=== PATIENT | female | born 1960 ===

== ENCOUNTER 2024-09-11 10:35 | Emergency (ER) | payer MEDICAID, MEDICARE, OTHER ==
[~2024-09-11] VITALS: Ht 149.9 cm; Wt 81.8 kg
--- NOTE | 2024-09-11 12:16 | ED.PDOC ---
Foreign Body HPI Comments A 64 YEAR OLD FEMALE PRESENTS TO THE ED WITH COMPLAINT OF FOREIGN BODY OF LEFT HAND. PATIENT STATES SHE WAS PITTING PIECES OF WOOD INTO A BUCKET EARLIER TODAY AND SHE ACCIDENTALLY GOT A SPLINTER STUCK IN HER LEFT HAND. PATIENT REPORTS SHE HAS BEEN UNABLE TO REMOVE THE SPLINTER AND WOULD LIKE TO HAVE IT REMOVED HERE IN THE ED. PATIENT DENIES FEVER, CHILLS, SHORTNESS OF BREATH, CHEST PAIN, ABDOMINAL PAIN, NAUSEA, VOMITING, HEADACHE, OR OTHER COMPLAINTS. NO OTHER SYMPTOMS OR MODIFYING FACTORS AT THIS TIME. PATIENT IS ALERT, ORIENTED X 4, AND HAS STEADY GAIT. Chief Complaint: Foreign Body Time Seen by MD: 11:03 Primary Care Provider: STACY History of Present Illness: Nurses Notes, Medications, Allergies Allergies: Uncoded Allergies: PENICILLIN (Allergy, Unknown, 09/11/24) Home Meds Active Scripts Cephalexin Monohydrate (Cephalexin) 500 Mg Cap, 1 CAP PO QID, #28 CAP Prov:ABBIE SPENCEMOLLYDebra VINNIE 09/11/24 Information Source: Patient Mode of Arrival: Ambulatory Timing: Hours Duration: Since onset, Hours Severity: Moderate Ability to handle secretions: Normal Prehospital treatment: None Location: Left (LEFT HAND), Skin Context: Accidental Foreign Body: Wood Removal: Was attempted, Was not successful Associated signs and symptoms: Pain Past Medical History PAST MEDICAL HISTORY: Denies Surgical History: Denies all surgeries CELEBRITY MANAGER History: No Pertinent CELEBRITY MANAGER History Family History Family History: Reviewed,noncontributory to illness Social History Smoker: Non-Smoker Alcohol: Denies ETOH Use Drugs: Denies Drug Use Lives In: Home Constitutional: denies: chills, diaphoresis, fatigue, fever, malaise, sweats, weakness, others EENTM: denies: blurred vision, double vision, ear bleeding, ear discharge, ear drainage, ear pain, ear ringing, eye pain, eye redness, hearing loss, mouth pain, mouth swelling, nasal discharge, nose bleeding, nose congestion, nose pain, photophobia, tearing, throat pain, throat swelling, voice changes, others Respiratory: denies: cough, hemoptysis, orthopnea, SOB at rest, shortness of breath, SOB with excertion, stridor, wheezing, others Cardiovascular: denies: chest pain, dizzy spells, diaphoresis, Dyspnea on exertion, edema, irregular heart beat, left arm pain, lightheadedness, palpitations, PND, syncope, others Gastrointestinal: denies: abdomen distended, abdominal pain, blood streaked bowels, constipated, diarrhea, dysphagia, difficulty swallowing, hematemesis, melena, nausea, poor appetite, poor fluid intake, rectal bleeding, rectal pain, vomiting, others Genitourinary: denies: abnormal vagina bleeding, burning, dyspareunia, dysuria, flank pain, frequency, hematuria, incontinence, pain, , vagina d ischarge, urgency, others Neurological: denies: dizziness, fainting, headache, left sided numbness, left sided weakness, numbness, paresthesia, pre-existing deficit, right sided numbness, right sided weakness, seizure, speech problems, tingling, tremors, weakness, others Musculoskeletal: denies: back pain, gout, joint pain, joint swelling, muscle pain, muscle stiffness, neck pain, others Integumetry: reports: others (SPLINTER STUCK IN LEFT HAND); denies: bruises, change in color, change in hair/nails, dryness, laceration, lesions, lumps, rash, wounds Allergic/Immunocompromised: denies: Difficulty Healing, Frequent Infections, Hives, Itching, others Hematologic/Lymphatic: denies: anemia, blood clots, easy bleeding, easy bruising, swollen glands, others Endocrine: denies: excessive hunger, excessive sweating, excessive thirst, excessive urination, flushing, intolerance to cold, intolerance to heat, unexplained weight gain, unexplained weight loss, others Psychiatric: denies: anxiety, bipolar disorder, depression, hopeless, panic disorder, schizophrenia, sleepless, suicidal, others All Other Systems: Reviewed and Negative Physical Exam General Appearance: No Apparent Distress, Normal HEENT: Normal ENT Inspection, PERRL/EOMI, Pharynx Normal, TMs Normal Neck: Full Range of Motion, Non-Tender, Normal, Normal Inspection Respiratory: Chest Non-Tender, Lungs Clear, No Accessory Muscle Use, No Respiratory Distress, Normal Breath Sounds Cardiovascular: No Edema, No JVD, No Murmur, No Gallop, Normal Peripheral Pulses, Regular Rate/Rhythm Breast Exam: Deferred Gastrointestinal: No Organomegaly, Non Tender, No Pulsatile Mass, Normal Bowel Sounds, Soft Genitalia: Deferred Pelvic: Deferred Rectal: Deferred Extremities: Decreased range of motion, No calf tenderness, Normal capillary refill, Normal range of motion, No pedal edema, Tender (WITH A WOOD SPLINTER ON LEFT PALM. ) Musculoskeletal : Apperance: Normal Neurologic: Alert, vocational nursing instructor II-XII nml as Tested, No Motor Deficits, Normal Affect, Normal Mood, No Sensory Deficits Cerebellar Function: Normal Reflexes: Normal Skin: Dry, Normal Color, Warm, Wounds (A SMALL PUNCTURE WOUND A WOOD SPLINTER ON LEFT PALM, NO BLEEDING AND SWELLING. ) Peripheral Pulses: 2+ carotid (R), 2+ carotid (L) Lymphatic: No Adenopathy Was a procedure done? Was a procedure done?: Yes Sedation Sedation?: No Foreign Body Removal Foreign body in: SQ Anesthetic: Lidocaine, Without Epi Prep: Prep, Saline, Irrigation Procedure: Identified (A SPLINTER ), Removed (A LONG SPLINTER ON LEFT PALM. ) Informed consent obtained: No Risks/benefits/alt described: Yes FB Differential Dx Differential Diagnosis: Abrasion, Foreign Body X-Ray, Labs, Meds, VS Vital Signs Date Time Temp Pulse Resp B/P (MAP) Pulse Ox O2 Delivery O2 Flow Rate FiO2 09/11/24 12:18 98.0 115 20 159/71 (100) 97 98.0 09/11/24 12:18 115 20 97 Room Air 09/11/24 11:13 98.0 115 20 159/71 (100) 97 X-Ray, Labs, Meds, VS Comment EXTERNAL MEDICAL RECORDS REVIEWED: [NONE] INDEPENDENT HISTORIANS: [NONE] SOCIAL DETERMINANTS OF HEALTH: [NONE] LABS ORDERED: NONE REVIEWED AND INTERPRETED RESULTS: NONE IMAGING ORDERED: NONE TREATMENTS ORDERED: PROCEDURES PERFORMED: FOREIGN BODY REMOVAL OF LEFT HAND CRITICAL CARE TIME: NONE I HAVE DISCUSSED THE PATIENT WITH THE ATTENDING PHYSICIAN DR. SAGASTUME AND HE AGREES WITH THE PATIENT'S PLAN OF CARE AND DISPOSITION. BASED ON HISTORY OF PRESENT ILLNESS, AND PHYSICAL EXAM, PATIENT WILL BE DISCHARGED HOME. DISCUSSED PLAN FOR DISCHARGE HOME WITH RX []. MEDICATION WARNINGS GIVEN. SHARED DECISION MAKING: PATIENT INSTRUCTED TO FOLLOW UP WITH PRIMARY CARE PROVIDER IN 1-2 DAYS FOR RE-EVALUATION OF SYMPTOMS. PATIENT VERBALIZES UNDERSTANDING TO RETURN TO ED FOR NEW OR WORSENING SYMPTOMS OR IF FOLLOW UP WITH PCP CANNOT BE OBTAINED. PATIENT FEELS COMFORTABLE GOING HOME AT THIS TIME. ALL QUESTIONS ADDRESSED AT TIME OF DISCHARGE. Time of 1ST Reevaluation: 12:36 Reevaluation 1ST: Improved Patient Education/Counseling: Diagnosis, Treatment, Need For Follow Up Family Education/Counseling: Diagnosis, Treatment, Need For Follow Up Medical Screening: No EMC Exist At This Time Departure 1 Departure Time of Disposition: 12:36 Impression: Primary Impression: History of retained foreign body fully removed Disposition: HOME / SELF CARE / HOMELESS Condition: Stable Additional Instructions: FOLLOW-UP WITH PCP IN 1 TO 2 DAYS. TAKE MEDICATIONS PRESCRIBED. RETURN TO ED FOR ANY NEW OR WORSENING SYMPTOMS. e-Prescriptions Cephalexin Monohydrate (Cephalexin) 500 Mg Cap 1 CAP PO QID, #28 CAP Prov: ADRIÁN SPENCE 09/11/24 Discharged With: Self, Relative (Sibling) Critical Care Note Critical Care Time?: No Stability Stability form required: No I personally scribed for ADRIÁN SPENCE ([email or web address]) on 09/11/24 at 12:16. Electronically submitted by Marty Restrepo ([email or web address]). I personally scribed for ADRIÁN SPENCE ([email or web address]) on 09/11/24 at 12:19. Electronically submitted by Marty Restrepo ([email or web address]). ADRIÁN SPENCE Sep 11, 2024 12:16
[2024-09-11 12:18] VITALS: BP 159/71; PULSE 115; RESP 20; TEMP 98; O2SAT 97
[2024-09-11] MEDS ORDERED: CEPH500C PO (12:21)
== END 2024-09-11 12:23 | disposition home or self-care (01) ==
LOC: ER 10:35
DX: S61.432A Puncture wound without foreign body of left hand, initial encounter (principal); Z87.821 Personal history of retained foreign body fully removed; Z79.899 Other long term (current) drug therapy; W22.8XXA Striking against or struck by other objects, initial encounter; Y93.89 Activity, other specified; Y92.89 Other specified places as the place of occurrence of the external cause; Y99.8 Other external cause status